=== PATIENT | female | born 1945 | race Caucasian/White ===

== ENCOUNTER → 2021-08-14 | Outpatient (CLI) | payer MEDICARE | LOC: SLEEP-COR 13:54 | DX: G47.33 Obstructive sleep apnea (adult) (pediatric) (principal); G47.61 Periodic limb movement disorder | CPT/HCPCS: 95810 ==

== ENCOUNTER → 2021-12-10 | Outpatient (CLI) | payer MEDICARE, OTHER | LOC: KOH-I 12:00 | DX: M48.56XA Collapsed vertebra, not elsewhere classified, lumbar region, initial encounter for fracture (principal); M51.26 Other intervertebral disc displacement, lumbar region | CPT/HCPCS: 72146; 72148 ==

== ENCOUNTER → 2021-12-29 | Outpatient (CLI) | payer MEDICARE, OTHER | LOC: MRI 12:59 | DX: S24.119A Complete lesion at unspecified level of thoracic spinal cord, initial encounter (principal) | CPT/HCPCS: 36415; 72157; 82565; 84520; A9577 ==